=== PATIENT | male | born 1965 | race Two or more races ===

== ENCOUNTER 2022-08-03 20:06 | Emergency (ER) | payer OTHER ==
[~2022-08-03] VITALS: Ht 170.2 cm; Wt 61.1 kg
[~2022-08-03 20:06] MED LIST: NICO21DI4; [UNRECOGNIZED DRUG - REMARK]; comment
[2022-08-03 20:11] VITALS: BP 172/83; TEMP 98.5; O2SAT 94
== END 2022-08-04 01:16 | disposition left against medical advice (07) ==
LOC: EDBD 20:06 → M ED 20:06
DX: R51.9 Headache, unspecified (principal); J44.9 Chronic obstructive pulmonary disease, unspecified; F17.200 Nicotine dependence, unspecified, uncomplicated